=== PATIENT | female | born 1980 | race Caucasian/White ===

== ENCOUNTER 2020-11-14 10:57 | Inpatient (IN) | payer OTHER ==
[~2020-11-14 10:57] MED LIST: CYMBALTA60 MG PO; DULOXETINE HCL30 MG PO; GABAPENTIN100 MG PO; LIDOCAINE 5% P1 EACH TOP; MEDROL 4MG DOSEP4 MG PO; PERCOCET 5-3251 EACH PO; PRENATAL FORMU1 EACH PO; TYLENOL #31 EACH PO
[2020-11-14 12:06] LABS: HCT 32.3 % (37.0-47.0); HGB 10.5 g/dl (12.5-16.0); MCH 27.1 pg (25.0-31.0); MCHC 32.5 g/dL (32.0-36.0); MCV 83.2 fL (78.0-100.0); MPV 9.5 fL (6.0-9.5); RBC 3.88 M/uL (4.20-5.40); RDW 14.7 % (11.5-14.0); WBC 10.1 K/uL (4.0-10.5)
[2020-11-14 12:07] LABS: BILIRUBIN NEGATIVE (NEGATIVE); BLOOD TRACE-INTACT Ery/uL (NEGATIVE); CLARITY CLEAR (CLEAR); COLOR YELLOW (YELLOW); GLUCOSE (U) NORMAL (NORMAL); LEUKOCYTES NEGATIVE Leu/uL (NEGATIVE); NITRITE NEGATIVE (NEGATIVE); PROTEIN NEGATIVE (NEGATIVE); SPECIFIC GRAVITY 1.015 (1.001-1.030); UROBILINOGEN 0.2 mg/dL (0.2-1.0)
[2020-11-14 12:11] LABS: AMPHETAMINES NEGATIVE (NEGATIVE); BARBITURATES NEGATIVE (NEGATIVE); ECSTASY (MDMA) NEGATIVE (NEGATIVE); MARIJUANA (THC) NEGATIVE (NEGATIVE); METHADONE NEGATIVE (NEGATIVE); OPIATES NEGATIVE (NEGATIVE); OXYCODONE NEGATIVE (NEGATIVE)
[2020-11-14 12:15] LABS: URINARY WBC RARE
[2020-11-14 12:16] LABS: BACTERIA TRACE
[2020-11-14 16:24] LABS: BILIRUBIN NEGATIVE (NEGATIVE); BLOOD NEGATIVE Ery/uL (NEGATIVE); CLARITY CLEAR (CLEAR); COLOR YELLOW (YELLOW); GLUCOSE (U) NORMAL (NORMAL); LEUKOCYTES NEGATIVE Leu/uL (NEGATIVE); NITRITE NEGATIVE (NEGATIVE); PROTEIN NEGATIVE (NEGATIVE); SPECIFIC GRAVITY 1.025 (1.001-1.030); UROBILINOGEN 0.2 mg/dL (0.2-1.0)
[2020-11-15 06:06] LABS: HCT 30.7 % (37.0-47.0); HGB 9.6 g/dl (12.5-16.0); MCH 26.7 pg (25.0-31.0); MCHC 31.3 g/dL (32.0-36.0); MCV 85.3 fL (78.0-100.0); MPV 9.8 fL (6.0-9.5); RBC 3.6 M/uL (4.20-5.40); RDW 14.6 % (11.5-14.0); WBC 9.8 K/uL (4.0-10.5)
[2020-11-16] MEDS ORDERED: OXYCODONE-ACET1 EACH PO (09:45)
[2020-11-16] MEDS ORDERED: IBUPROFEN800 MG PO (09:45)
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
--- NOTE | 2020-11-19 08:48 | NUR ---
PT. D/C HOME ON 11/17/2020.
== END 2020-11-17 10:55 | disposition home or self-care (01) | DRG 787 ==
LOC: FOB 10:57 → FOD 11:56 → FOB 11:57
PROVIDERS: ADMIT Obstetrics & Gynecology
PROC: 30233N1 Transfusion of Nonautologous Red Blood Cells into Peripheral Vein, Percutaneous Approach (ICD-10-PCS; 2020-11-14)
PROC: 10D00Z1 Extraction of Products of Conception, Low, Open Approach (ICD-10-PCS; principal; 2020-11-14 16:01)
PROC: 3E0334Z Introduction of Serum, Toxoid and Vaccine into Peripheral Vein, Percutaneous Approach (ICD-10-PCS; 2020-11-16)
DX: O34.211 Maternal care for low transverse scar from previous cesarean delivery (principal); O10.92 Unspecified pre-existing hypertension complicating childbirth; O98.52 Other viral diseases complicating childbirth; D62 Acute posthemorrhagic anemia; N85.8 Other specified noninflammatory disorders of uterus; B00.9 Herpesviral infection, unspecified; Z3A.38 38 weeks gestation of pregnancy; Z37.0 Single live birth; O26.893 Other specified pregnancy related conditions, third trimester; Z23 Encounter for immunization; Z87.820 Personal history of traumatic brain injury; Z20.822 Contact with and (suspected) exposure to COVID-19; Z67.11 Type A blood, Rh negative; O90.81 Anemia of the puerperium
CPT/HCPCS: 36415; 80305; 81001; 81003; 85461; 86850; 86900; 86901; 90686; G0008; J0456; J0690; J1885; J2250; J2274; J2405; J2704; J2790; J3010; J7050; J7120; U0002

== ENCOUNTER 2020-11-30 12:49 | Emergency (ER) | payer OTHER ==
[~2020-11-30 12:49] MED LIST changes: +IBUPROFEN800 MG PO; +OXYCODONE-ACET1 EACH PO
[2020-11-30] MEDS ORDERED: BACTRIM DS TAB1 EACH PO (16:03)
== END 2020-11-30 16:29 | disposition home or self-care (01) ==
LOC: FER 12:49
DX: O86.19 Other infection of genital tract following delivery (principal); L02.215 Cutaneous abscess of perineum; Z98.890 Other specified postprocedural states
CPT/HCPCS: 87070

== ENCOUNTER 2020-12-02 07:37 | Emergency (ER) | payer OTHER ==
[~2020-12-02 07:37] MED LIST changes: +BACTRIM DS TAB1 EACH PO
[2020-12-02] MEDS ORDERED: KEFLEX250 MG PO (09:17)
== END 2020-12-02 09:24 | disposition home or self-care (01) ==
LOC: FER 07:37
DX: Z48.817 Encounter for surgical aftercare following surgery on the skin and subcutaneous tissue (principal)
CPT/HCPCS: 99282